=== PATIENT | male | born 1950 | race Caucasian/White ===

== ENCOUNTER 2025-01-29 12:58 | Emergency (ER) | payer MEDICARE, SELFPAY ==
[2025-01-29] VITALS (16 sets, daily range): BP systolic 143–149; BP diastolic 93; PULSE 98–126; O2SAT 93–96; BMI 30.7
--- NOTE | 2025-01-29 13:11 | ECG_ITS ---
[facility] Test Date: 2025-01-29 Pat Name: BEV LEVY Department: Room: - Gender: Male [employer]cher [employer]: : 1950 Requested By: [id number] Order Number: [id number] Reading MD: JAYLEN KINCAID Measurements Intervals [place] Rate: 122 P: -[id number] ME: -[id number] QRS: 84 QRSD: 78 T: 20 QT: 320 QTc: 392 Interpretive Statements 28631 Atrial fibrillation with rapid ventricular response [address] depression, probably digitalis effect 9150 abnormal ECG Compared to ECG 10/04/2018 13:49:10 Atrial flutter no longer present Right-axis deviation no longer present Possible ischemia no longer present ST (T wave) deviation still present Electronically Signed On 01-30-2025 15:56:45 EDT by JAYLEN KINCAID
--- NOTE | 2025-01-29 13:12 | CT_ITS ---
[address] [address] Patient Name: BEV LEVY MRN: [id number] date: 1950 Sex: M Assigned Patient Location: ER Current Patient Location: ED.MAIN Accession/Order Number: [id number] Exam Date: 01/29/2025 13:24 Report Date: 01/29/2025 13:53 At the request of: DAYAMI MOLINA DO Procedure: CT head/brain wo con Unenhanced head CT TECHNIQUE: Contiguous axial imaging of the head. The CT exam was performed using one or more the following dose reduction techniques: Automated exposure control, adjustment of the MA and/or Kv according to patient size, or use of the iterative reconstruction technique. COMPARISON: None HISTORY: Head injury VENTRICLES: Within normal limits ATROPHY: None BRAIN PARENCHYMA: Adequate bermudez-white matter differentiation identified. HEMORRHAGE: None HERNIATION: No mass effect or herniation INFARCTION: No recent vascular distribution infarction is seen. EXTRA-AXIAL FLUID COLLECTIONS None MIDBRAIN: Unremarkable JONAS: Unremarkable MEDULLA: Unremarkable SINUSES: Unremarkable ORBITS: Grossly unremarkable MASTOIDS: Unremarkable BONY STRUCTURES Intact ADDITIONAL FINDINGS: CT/CT head/brain wo con IMPRESSION: No acute findings. Impression dictated by: James Lay M.D. 01/29/2025 1:53 PM Dictation Location: [place] [address] Electronically authenticated by: [id number] Y Date: 01/29/2025 13:53
--- NOTE | 2025-01-29 13:14 | CT_ITS ---
[address] [address] Patient Name: BEV LEVY MRN: [id number] date: 1950 Sex: M Assigned Patient Location: ER Current Patient Location: ED.MAIN Accession/Order Number: [id number] Exam Date: 01/29/2025 13:24 Report Date: 01/29/2025 14:05 At the request of: DAYAMI MOLINA DO Procedure: CT cervical spine wo con CT Cervical Spine withoutcontrast TECHNIQUE: Axial imaging with 2-D and 3-D reconstruction. The CT exam was performed using one or more the following dose reduction techniques: Automated exposure control, adjustment of the MA and/or Kv according to patient size, or use of the iterative reconstruction technique. COMPARISON: None HISTORY: Head injury POST SURGERY CHANGES: None BONY ALIGNMENT: Adequate BONY SPINAL CANAL: Patent central bony canal FRACTURE: None BONY LESIONS: None SOFT TISSUES: Unremarkable DEGENERATIVE CHANGES: Moderate LUNG APICES: Unremarkable ADDITIONAL FINDINGS: Atherosclerosis of the carotid bifurcations CT/CT cervical spine wo con IMPRESSION: No acute process Impression dictated by: James Lay M.D. 01/29/2025 2:05 PM Dictation Location: [place] [address] Electronically authenticated by: [id number] Y Date: 01/29/2025 14:05
--- NOTE | 2025-01-29 13:19 | XR_ITS ---
The [address] [address] Patient Name: BEV LEVY MRN: [id number] date: 1950 Sex: M Assigned Patient Location: ER Current Patient Location: ED.MAIN Accession/Order Number: [id number] Exam Date: 01/29/2025 13:24 Report Date: 01/29/2025 13:52 At the request of: DAYAMI MOLINA DO Procedure: XR chest 1V Plain film chest Single view HISTORY: Syncopal episode. Hit head COMPARISON: None FINDINGS: SUPPORT DEVICES: None POSTSURGICAL CHANGES: None HEART: Within normal limits PULMONARY GILMA: Within normal limits MEDIASTINUM: Unremarkable LUNGS AND PLEURA: No acute lung process, pleural effusion or pneumothorax identified. BONY STRUCTURES: Intact ADDITIONAL FINDINGS None XR/XR chest 1V IMPRESSION: No acute process. Impression dictated by: James Lay M.D. 01/29/2025 1:52 PM Dictation Location: [place] [address] Electronically authenticated by: [id number] Y Date: 01/29/2025 13:52
[2025-01-29 13:27] LABS: Hematocrit 41.2 % (42.0-54.0); Hemoglobin 13.4 g/dL (14.0-18.0); Immature Granulocytes Abs Auto 0.04 10^3/uL (0.00-0.03); Immature Granulocytes Pct Auto 0.4 % (0.0-0.5); Lymphocytes Absolute Auto 1.2 10^3/uL (1.2-3.8); Mean Corpuscular HGB Conc 32.5 g/dL (29.9-35.2); Mean Corpuscular Hemoglobin 32.6 pg (25.9-34.0); Mean Corpuscular Volume 100.2 fL (80.0-94.0); Platelet Count 108 10^3/uL (150-450); Red Blood Count 4.11 10^6/uL (4.70-6.10); White Blood Count 9.4 10^3/uL (4.0-11.0)
[2025-01-29 13:50] LABS: Alanine Aminotransferase 45 U/L (16-63); Albumin Globulin Ratio 1.0; Albumin Level 3.5 g/dL (3.4-5.0); Alkaline Phosphatase 92 U/L (46-116); Anion Gap 10.0; Aspartate Amino Transferase 29 U/L (15-37); Blood Urea Nitrogen 16.0 mg/dL (7.0-18.0); Calcium 8.7 mg/dL (8.5-10.1); Carbon Dioxide 27.4 mmol/L (21.0-32.0); Chloride 105 mmol/L (98-107); Estimated GFR (African America 56 (>=60 mL/min/1.73m^2); Estimated GFR (Non-African Ame 46 (>=60 mL/min/1.73m^2); Globulin 3.6 g/dL; Glucose 125 mg/dL (74-106); Potassium 4.4 mmol/L (3.5-5.1); Sodium 138 mmol/L (136-145); Total Protein 7.1 g/dL (6.4-8.2)
--- NOTE | 2025-01-29 16:17 | ED.GENADUL1 ---
HPI HPI - General Adult General Chief complaint: Syncope Stated complaint: FALL HEAD INJURY WEAKNESS Time Seen by Provider: 01/29/25 13:11 Source: patient Mode of arrival: ambulance Limitations: no limitations History of Present Illness HPI narrative: Patient is a 74-year-old male presenting to the emergency department for concerns of a syncopal event. Patient states he was sitting on the toilet prior to arrival when he became lightheaded and passed out. He states he only passed out for a brief period time, but did fall and hit his head. He is on Eliquis for A-fib. He did not have any chest pain or shortness of breath at that time. He has no abdominal pain, nausea, or vomiting. He is currently asymptomatic. He states he has a Holter monitor on and follows up closely with his computer support analyst. He has an appointment tomorrow for an echocardiogram at 2 PM. He states has had a few episodes of syncope in the past, which he is being worked up for. He denies history of seizures. There is no loss of bladder/bowel function or tongue biting. Related Data Home Medications ?Medication ?Instructions ?Recorded ?Confirmed apixaban 5 mg tablet (Eliquis) 5 mg PO BID 01/29/25 01/29/25 atorvastatin 80 mg tablet 80 mg PO HS 01/29/25 01/29/25 lisinopril 5 mg tablet 5 mg PO DAILY 01/29/25 01/29/25 metoprolol tartrate 50 mg tablet 50 mg PO BID 01/29/25 01/29/25 spironolactone 25 mg tablet 25 mg PO DAILY 01/29/25 01/29/25 Allergies Allergy/AdvReac Type Severity Reaction Status Date / Time No Known Drug Allergies Allergy Verified 01/29/25 13:02 Review of Systems ROS Status of ROS 10 or more systems reviewed and unremarkable except as noted in history and below PFSH PFSH Social History Little interest or pleasure in doing things: not at all Feeling down, depressed, or hopeless: not at all Exam Narrative Exam Narrative: CONSTITUTIONAL: Well-appearing, answering questions and following commands appropriately SKIN: Was warm and dry. HEAD: Atraumatic, normocephalic. No C-spine tenderness. EYES: No conjunctival pallor. No periorbital ecchymosis. EARS, NOSE, THROAT: No JVD. No catherine sign. RESPIRATORY: Clear to auscultation bilaterally, no wheezes, crackles, or stridor, no use of accessory muscles CARDIOVASCULAR: Irregularly irregular rhythm with a tachycardic rate. There is no S3, S4, murmur, rub. Radial pulses are 2+ and symmetrical. GASTROINTESTINAL: Abdomen was soft, non-tender, and non-distended. There is no guarding or rebound tenderness MUSCULOSKELETAL: There was no lower extremity edema, erythema, or tenderness. NEUROLOGIC: Patient is awake and alert. Equal strength in all extremities. Facies were symmetrical. Constitutional Vital Signs, click to edit/add: Last Vital Signs Pulse 98 H 01/29/25 15:16 Resp 20 01/29/25 15:16 BP 143/93 H 01/29/25 15:16 Pulse Ox 95 01/29/25 15:16 O2 Del Method Room Air 01/29/25 15:16 Course Vital Signs Vital signs: Vital Signs Blood Pressure 149/93 H 01/29/25 13:00 Pulse Rate 98 H 01/29/25 15:16 Respiratory Rate 20 01/29/25 15:16 Blood Pressure 143/93 H 01/29/25 15:16 Pulse Oximetry 95 01/29/25 15:16 Oxygen Delivery Method Room Air 01/29/25 15:16 Medical Decision Making [facility] Narrative Medical decision making narrative: Patient is a 74-year-old male presenting to the emergency department for evaluation after syncopal event earlier today and subsequent minor head injury. Vital signs on arrival are within normal limits other than mild tachycardia. He is afebrile hemodynamically stable. Physical examination as noted above. He has no external signs of injury. Differential diagnosis includes vasovagal syncope, arrhythmia, valvular heart disease such as aortic stenosis, ACS, intracranial hemorrhage, or other electrolyte/metabolic derangement. IV was established laboratory studies were obtained. CT head/C-spine was ordered. Laboratory studies were unremarkable. No significant electrolyte or metabolic derangement. No evidence of acute kidney injury. No anemia, leukocytosis, or thrombocytopenia. No transaminitis or hyperbilirubinemia. Troponin nonelevated. 12 Lead EKG: Atrial fibrillation with rapid ventricular response of 122bpm. No ST segment elevations. QRS, MA, and QTc interval within normal limits. Final impression: A-fib with RVR. No acute myocardial schema Chest x-ray independently reviewed/interpreted by myself demonstrated no acute cardiopulmonary process. CT head independently reviewed/interpreted by myself and reviewed by radiology demonstrated no acute intracranial pathology or hemorrhage. CT C-spine demonstrated no acute osseous abnormalities. On reevaluation, patient remains asymptomatic. Given patient's age, risk factors, and concerning history of syncope, I did offer the patient admission to the hospital for observation and further cardiac evaluation. However, the patient prefers to be discharged home and follow-up with his computer support analyst. He states he actually has an appointment tomorrow with his computer support analyst for an echocardiogram. Given that the patient is hemodynamically stable, and now with an improved heart rate, I do think this is reasonable. He was instructed to return to the emergency department immediately for any new or concerning symptoms such as recurrent syncope or chest pain. Patient understands and agrees the plan. FINAL IMPRESSION: #Acute syncope #Acute fall on anticoagulation DISPOSITION: Discharged home CONDITION: Fair Medical Records Medical records reviewed: Yes I reviewed the patient's medical records Lab Data Lab results reviewed: Yes I reviewed the patient's lab results Labs: Lab Results 01/29/25 Range/Units 13:17 WBC 9.4 (4.0-11.0) 10^3/uL RBC 4.11 L (4.70-6.10) 10^6/uL Hgb 13.4 L (14.0-18.0) g/dL Hct 41.2 L (42.0-54.0) % MCV 100.2 H (80.0-94.0) fL MCH 32.6 (25.9-34.0) pg MCHC 32.5 (29.9-35.2) g/dL RDW 14.0 (11.0-15.0) % Plt Count 108 L (150-450) 10^3/uL MPV 9.6 (9.5-13.5) fL Neut % (Auto) 72.3 (43.0-75.0) % Lymph % (Auto) 13.1 L (20.5-60.0) % [place] % (Auto) 13.5 H (1.7-12.0) % Eos % (Auto) 0.3 L (0.9-7.0) % Baso % (Auto) 0.4 (0.2-2.0) % Neut # (Auto) 6.8 H (1.4-6.5) 10^3/uL Lymph # (Auto) 1.2 (1.2-3.8) 10^3/uL [place] # (Auto) 1.3 H (0.3-0.8) 10^3/uL Eos # (Auto) 0.0 (0.0-0.7) 10^3/uL Baso # (Auto) 0.0 (0.0-0.1) 10^3/uL Abs Immat Gran (auto) 0.04 H (0.00-0.03) 10^3/uL Imm/Tot Granulo (auto) 0.4 (0.0-0.5) % Sodium 138 (136-145) mmol/L Potassium 4.4 (3.5-5.1) mmol/L Chloride 105 (98-107) mmol/L Carbon Dioxide 27.4 (21.0-32.0) mmol/L Anion Gap 10.0 BUN 16.0 (7.0-18.0) mg/dL Creatinine 1.49 H (0.70-1.30) mg/dL Est GFR ( Amer) 56 L (>=60 mL/min/1.73m^2) Est GFR (Non-Af Amer) 46 L (>=60 mL/min/1.73m^2) BUN/Creatinine Ratio 10.7 Glucose 125 H (74-106) mg/dL Calcium 8.7 (8.5-10.1) mg/dL Total Bilirubin 1.0 (0.2-1.0) mg/dL AST 29 (15-37) U/L ALT 45 (16-63) U/L Alkaline Phosphatase 92 (46-116) U/L Troponin I High Sens 25.3 (4.0-76.1) pg/mL Total Protein 7.1 (6.4-8.2) g/dL Albumin 3.5 (3.4-5.0) g/dL Globulin 3.6 g/dL Albumin/Globulin Ratio 1.[address] scan - head: Attestation: I personally reviewed and interpreted this imaging study as follows: Radiologist's impression: ITS Impressions Head CT 01/29/25 13:12 IMPRESSION: No acute findings. Impression dictated by: James Lay M.D. 01/29/2025 1:53 PM Dictation Location: [facility] Electronically authenticated by: [id number] Y Date: 01/29/2025 13:[address] 01/29/25 13:14 IMPRESSION: No acute process Impression dictated by: James Lay M.D. 01/29/2025 2:05 PM Dictation Location: [facility] Electronically authenticated by: [id number] Y Date: 01/29/2025 14:05 Chest X-Ray 01/29/25 13:19 IMPRESSION: No acute process. Impression dictated by: James Lay M.D. 01/29/2025 1:52 PM Dictation Location: [employer] [facility] Electronically authenticated by: [id number] Y Date: 01/29/2025 13:52 ECG Data Attestation: I personally reviewed and interpreted this ECG as follows: Discharge Plan Discharge Chief Complaint: Syncope Clinical Impression: Vasovagal syncope Patient Disposition: Home, Self-Care Time of Disposition Decision: 14:10 Condition: Fair Mode of Transportation: Private Vehicle Prescriptions / Home Meds: No Action Eliquis 5 mg tablet 5 mg PO BID atorvastatin 80 mg tablet 80 mg PO HS lisinopril 5 mg tablet 5 mg PO DAILY metoprolol tartrate 50 mg tablet 50 mg PO BID spironolactone 25 mg tablet 25 mg PO DAILY Print Language: Filipino Instructions: Syncope (ED) Referrals: Mp Lee MD [Primary Care Provider, Family Practice] - 1 week Discharge Date/Time: 01/29/25 15:19
== END 2025-01-29 15:19 | disposition home or self-care (01) ==
PROVIDERS: Emergency Provider Student in an Organized Health Care Education/Training Program; PCP Family Medicine
DX: R55 Syncope and collapse (principal); Z79.01 Long term (current) use of anticoagulants; I48.91 Unspecified atrial fibrillation
CPT/HCPCS: 36415; 70450; 71045; 72125; 80053; 81001; 84484; 85025; 93005; 99285